=== PATIENT | female | born 1970 | race Caucasian/White ===

== ENCOUNTER 2022-04-23 13:31 | Emergency (ER) | payer MEDICAID, SELFPAY ==
[2022-04-23 13:38] VITALS: BP 109/62; PULSE 75; RESP 16; TEMP 36.7; O2SAT 98
--- NOTE | 2022-12-10 16:57 | ED_ITS ---
HPI - Fall General: Chief Complaint: Fall Stated Complaint: Fall, Head injury and back injury Time Seen by Provider: 04/23/22 15:04 History of Present Illness: LWBS Course Vital Signs: Vital signs: Vital Signs Temperature 98.1 F 04/23/22 13:38 Pulse Rate 75 04/23/22 13:38 Respiratory Rate 16 04/23/22 13:38 Blood Pressure 109/62 04/23/22 13:38 Pulse Oximetry 98 04/23/22 13:38 Oxygen Delivery Me thod Room Air 04/23/22 13:38 MDM - Fall Medical Decision Making LWBS Discharge Plan Discharge Patient Disposition: Left Without Being Seen Coding Level of Care Code ED [employer] for Manuel Chavez
== END 2022-04-23 16:02 | disposition left against medical advice (07) ==
PROVIDERS: Emergency Provider Physician Assistant
DX: Z53.21 Procedure and treatment not carried out due to patient leaving prior to being seen by health care provider (principal); R52 Pain, unspecified

== ENCOUNTER → 2024-04-15 15:22 | Outpatient (BNVA) | payer MEDICAID, SELFPAY | PROVIDERS: Visit Provider Family Medicine | DX: Z13.6 Encounter for screening for cardiovascular disorders (principal); Z13.220 Encounter for screening for lipoid disorders; E53.8 Deficiency of other specified B group vitamins; R55 Syncope and collapse; M79.7 Fibromyalgia; R00.0 Tachycardia, unspecified | CPT/HCPCS: 80053; 80061; 82607; 83735; 85025 ==

== ENCOUNTER 2024-06-16 12:25 | Outpatient (CLI) | payer MEDICAID, SELFPAY ==
--- NOTE | 2024-06-16 13:30 | CT_ITS ---
WS: [id number] CT ABDOMEN AND PELVIS WITH AND WITHOUT CONTRAST HISTORY: N32.89 - Other specified disorders of bladder, possible bladder mass seen on prior CT. Statu s post appendectomy and RIGHT oophorectomy. History of cervical cancer. TECHNIQUE: Multiphase with and without IV contrast imaging performed. Oral contrast has not been prov ided. Sagittal and coronal reformats are submitted. All CT scans at [facility] use at least o ne of these dose optimization techniques: automated exposure control; mA and/or kV adjustment per pat ient size (includes targeted exams where dose is matched to clinical indication); or iterative recons truction. CONTRAST: Omnipaque 350; 100 mL IV. DLP: 1523.03 mGy.cm COMPARISON: 12/08/2023, Calcification RIGHT middle lobe. Otherwise lung bases are clear. Heart size is normal. Small hiatal h ernia. Normal liver. Slightly contracted gallbladder. Normal portal vein. Normal spleen, pancreas and adrena l glands. Kidneys are normally enhancing bilaterally with no renal calcifications or obstruction. No solid mass . Atherosclerotic plaque scattered throughout the abdominal aorta. SMA and celiac axis are well opaci fied. Stomach is markedly distended with food products. No small bowel obstruction. Diffuse constipation. P rior appendectomy. Minimal sigmoid diverticulosis. No acute diverticulitis. Urinary bladder is well distended. No filling defects. The area of increased attenuation seen in the RIGHT bladder on an outside CT is not evident on today's examination. On the delayed imaging there is good distention of the urinary bladder with no filling defect. No wall thickening. There is no free fluid or ascites. Supraumbilical hernias contain fat only. No destructive bone lesions. CT/CT abdomen pelvis wo/w [id number] IMPRESSION: 1. No mass or wall thickening noted within the urinary bladder on a dedicated CT urography study. No bladder wall thickening. 2. Prior appendectomy. 3. No renal calcifications or obstruction. No renal mass. 4. Moderate diffuse constipation. 5. No ascites or adenopathy.
== END 2024-06-16 12:26 | disposition home or self-care (01) ==
LOC: RAD 12:26
PROVIDERS: PCP Family Medicine; Visit Provider Family Medicine
DX: N32.89 Other specified disorders of bladder (principal); I70.0 Atherosclerosis of aorta; K57.90 Diverticulosis of intestine, part unspecified, without perforation or abscess without bleeding; Z90.49 Acquired absence of other specified parts of digestive tract; K42.9 Umbilical hernia without obstruction or gangrene; F10.20 Alcohol dependence, uncomplicated; F17.210 Nicotine dependence, cigarettes, uncomplicated
CPT/HCPCS: 74178; Q9967

== ENCOUNTER → 2025-01-27 14:28 | Outpatient (BNVA) | payer MEDICAID, SELFPAY | PROVIDERS: PCP Family Medicine; Visit Provider Family Medicine | DX: I47.19 Other supraventricular tachycardia (principal); S30.860A Insect bite (nonvenomous) of lower back and pelvis, initial encounter; W57.XXXA Bitten or stung by nonvenomous insect and other nonvenomous arthropods, initial encounter; M25.50 Pain in unspecified joint | CPT/HCPCS: 80053; 85025; 85651; 86140; 86618; 86666; 86757 ==

== ENCOUNTER → 2025-02-26 13:04 | Outpatient (BNVA) | payer MEDICAID, SELFPAY | PROVIDERS: PCP Family Medicine; Visit Provider Family Medicine | DX: R30.0 Dysuria (principal) | CPT/HCPCS: 81000; 87077; 87086; 87184 ==

== ENCOUNTER → 2025-03-05 11:15 | Outpatient (BNVA) | payer MEDICAID, SELFPAY | PROVIDERS: PCP Family Medicine; Visit Provider Family Medicine | DX: R30.0 Dysuria (principal) | CPT/HCPCS: 81000 ==

== ENCOUNTER → 2025-04-08 14:16 | Outpatient (BNVA) | payer MEDICAID, SELFPAY | PROVIDERS: PCP Family Medicine; Visit Provider Family Medicine | DX: Z87.440 Personal history of urinary (tract) infections (principal); R30.0 Dysuria | CPT/HCPCS: 81000; 87086 ==